=== PATIENT | female | born 1995 | race African-American/Black ===

== ENCOUNTER 2024-12-24 10:04 | Emergency (ER) | payer OTHER ==
[~2024-12-24] VITALS: Ht 165.1 cm; Wt 143.4 kg
[2024-12-24 10:15] VITALS: PULSE 75; RESP 20; TEMP 97.5; O2SAT 97
[2024-12-24 11:18] LABS: BASOPHILS % 0.2 % (0.0-1.0); EOSINOPHILS % 0.7 % (0.0-6.0); HEMOGLOBIN 9.3 g/dL (12.0-16.0); LYMPHOCYTES # (AUTO) 1.5 (1.0-3.2); LYMPHOCYTES % 32.3 % (18.0-39.1); MEAN CORPUSCULAR HEMOGLOBIN 25.2 pg (28-32); MEAN CORPUSCULAR HGB CONC 32.1 g/dL (31-35); MEAN CORPUSCULAR VOLUME 78.6 fL (81-99); MONOCYTES # (AUTO) 0.3 (0.2-0.8); MONOCYTES % 6.2 % (4.4-11.3); NEUTROPHILS # (AUTO) 2.8 (2.1-6.9); NEUTROPHILS % 60.4 % (38.7-80.0); PLATELET COUNT 305 x10e3/uL (140-360); RED BLOOD COUNT 3.69 x10e6/uL (3.6-5.1); RED CELL DISTRIBUTION WIDTH 16.5 % (11.7-14.4); WHITE BLOOD COUNT 4.55 x10e3/uL (4.8-10.8)
== END 2024-12-24 12:41 | disposition home or self-care (01) ==
LOC: FSED 10:10
DX: O20.0 Threatened abortion (principal)
CPT/HCPCS: 36415; 76801; 76830; 84702; 85025; 99283

== ENCOUNTER 2025-01-04 18:35 | Emergency (ER) | payer SELFPAY ==
[2025-01-04 18:40] VITALS: PULSE 110; RESP 20; TEMP 97.2
[2025-01-04] MEDS ORDERED: MULTI-VITAMIN1 EACH PO (22:30)
[2025-01-04 23:18] VITALS: BP 128/68; PULSE 100; RESP 18; TEMP 97.8; O2SAT 99
[2025-01-05] MEDS: SODIUM CHLORIDE 0.9% 1000ML 1,000 ML IV ONE (02:26)
== END 2025-01-04 23:18 | disposition home or self-care (01) ==
LOC: FSED 18:40
DX: O03.9 Complete or unspecified spontaneous abortion without complication (principal); D64.9 Anemia, unspecified
CPT/HCPCS: 36415; 76801; 76830; 80053; 81003; 84702; 85025; 99283